=== PATIENT | female | born 1965 | race Caucasian/White ===

== ENCOUNTER 2020-06-02 16:38 | Outpatient (CLI) | payer OTHER, BC, SELFPAY ==
--- NOTE | ~2020-06-02 | MM_ITS ---
EXAMINATION: MM screening [facility] BI w francia HISTORY: Screening mammogram TECHNIQUE: Craniocaudal and mediolateral oblique 3-D tomosynthesis images were obtained and synthetic 2-D images were generated. CAD analysis was submitted and interpreted. COMPARISON: 12/21/2018, 12/19/2017 bilateral digital screening mammogram examinations BREAST PARENCHYMAL COMPOSITION: There are scattered areas of fibroglandular density. FINDINGS: There is no evidence of suspicious mass, calcification, or architectural distortion to sugg est malignancy in either breast. There has been no suspicious interval change. IMPRESSION: 1. No mammographic evidence of malignancy. 2. Recommend routine screening mammography in one year. BI-RADS Category 1: Negative Reviewed, dictated and finalized at location A. 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
== END 2020-06-02 16:39 | disposition home or self-care (01) ==
PROVIDERS: PCP Nurse Practitioner; Visit Provider Nurse Practitioner
DX: Z12.31 Encounter for screening mammogram for malignant neoplasm of breast (principal)
CPT/HCPCS: 77063; 77067

== ENCOUNTER 2021-06-04 13:10 | Outpatient (CLI) | payer OTHER, BC, SELFPAY ==
--- NOTE | ~2021-06-04 | DEXA_ITS ---
Bone Density Report Name: ADENIKE JULES Age: 55 Sex: Female Ethnicity: White Date of : 1965 Indication: monitoring treatment; height loss; hysterectomy; postmenopausal Referring Provider: MANUELMAHNAZ Study: Bone densitometry was performed. Exam Date: June 04, 2021 Accession number: [id number] Bone Density: Region BMD T-score Z-score Classification AP Spine (L1-L4) 1.216 1.5 2.8 Normal Femoral Neck (Left) 0.861 0.1 1.3 Normal Total Hip (Left) 1.011 0.6 1.4 Normal Femoral Neck (Right) 0.828 -0.2 1.0 Normal Total Hip (Right) 0.999 0.5 1.3 Normal Total Hip Mean 1.005 0.6 1.4 Normal World Health Organization criteria for BMD impression classify patients as: Normal (T-score at or above -1.0), Osteopenia (T-score between -1.0 and -2.5), or Osteoporosis (T-score at or below -2.5). 10-year Fracture Risk: FRAX not reported because: All T-scores for Spine Total, Hip Total, Femoral Neck at or above -1.0 Treated for osteoporosis Previous Exams: Region Exam Age BMD T-score BMD Change BMD Change Date g/cm2 vs Baseline vs Previous AP Spine(L1-L4) 06/04/2021 55 1.216 1.5 0.045* 0.045* 09/13/2016 51 1.171 1.1 Total Hip(Left) 06/04/2021 55 1.011 0.6 0.038* 0.038* 09/13/2016 51 0.973 0.3 Total Hip(Right) 06/04/2021 55 0.999 0.5 0.015 0.015 09/13/2016 51 0.985 0.4 *Denotes significance at 95% confidence level, LSC for AP Spine = 0.022 g/cm2, LSC for Total Hip = 0.027 g/cm2 Clinical Information Provided by Patient: Is being treated for osteoporosis Has used the following medications: HRT (i.e. estrogen/hormone therapy), Vitamin D, Calcium Has the following medical conditions: Hysterectomy Patient maximum height was 67 Menopause Age: 50 Does not regularly consume dairy products Drinks caffeinated beverages Onset of menses at age 11 Number of children 2 Impression: The patient has normal bone mass. No significant bone loss was observed. Discussion: PATIENT UNDER TREATMENT WITH NO SIGNIFICANT BMD LOSS SINCE LAST EXAM. In an untreated patient, BMD typically declines with age. A lack of decline or gain is usually a sign that treatment is efficacious and fracture risk is reduced. It is important to ask patients whether they are taking their medications and to encourage continued and appropriate compliance with their osteoporosis therapies to reduce fracture r
--- NOTE | ~2021-06-04 | MM_ITS ---
EXAMINATION: MM screening [facility] BI w francia HISTORY: Screening mammogram TECHNIQUE: Craniocaudal and mediolateral oblique 3-D tomosynthesis images were obtained and synthetic 2-D images were generated. CAD analysis was submitted and interpreted. COMPARISON: 06/02/2020, 12/21/2018, 12/19/2017 bilateral screening mammogram examinations BREAST PARENCHYMAL COMPOSITION: There are scattered areas of fibroglandular density. FINDINGS: There is no evidence of suspicious mass, calcification, or architectural distortion to sugg est malignancy in either breast. There has been no suspicious interval change. IMPRESSION: 1. No mammographic evidence of malignancy. 2. Recommend routine screening mammography in one year. BI-RADS Category 1: Negative Reviewed, dictated and finalized at location A. C MIXER
== END 2021-06-04 13:11 ==
LOC: MICIMG 13:11
PROVIDERS: PCP Family Medicine; Visit Provider Nurse Practitioner
DX: Z12.31 Encounter for screening mammogram for malignant neoplasm of breast (principal); Z78.0 Asymptomatic menopausal state
CPT/HCPCS: 77063; 77067; 77080

== ENCOUNTER 2022-05-23 10:32 | Outpatient (CLI) | payer OTHER, BC, SELFPAY ==
--- NOTE | 2022-05-23 10:15 | ECG_ITS ---
Measurements Intervals [place] Rate: 80 P: 3 IA: 120 QRS: 1 QRSD: 82 T: 43 QT: 362 QTc: 419 Interpretive Statements SINUS RHYTHM BASELINE ARTIFACT- I, II, III, AVR, AVL, AVF, V1-V6 BORDERLINE ECG NO PREVIOUS ECG AVAILABLE FOR COMPARISON Electronically Signed On 05-23-2022 11:35:18 INTENSIVE CARE UNIT REGISTERED NURSE by Wil Weir D.O.
[2022-05-23 11:30] LABS: Anion Gap 8 mmol/L (8-16); Blood Urea Nitrogen 27 mg/dL (7-17); Calcium 8.8 mg/dL (8.4-10.2); Carbon Dioxide 31 mmol/L (22-30); Chloride 97 mmol/L (98-107); Estimated Glomerular Filt Rate > 60; Glucose 129 mg/dL (65-110); Sodium 136 mmol/L (137-145)
== END 2022-05-23 10:33 | disposition home or self-care (01) ==
PROVIDERS: Anesthesiology; PCP Family Medicine; Visit Provider Orthopaedic Surgery
DX: I10 Essential (primary) hypertension (principal); Z79.899 Other long term (current) drug therapy; Z01.818 Encounter for other preprocedural examination; R94.31 Abnormal electrocardiogram [ECG] [EKG]
CPT/HCPCS: 36415; 80048; 93005

== ENCOUNTER 2022-05-25 00:57 | Day surgery (SDC) | payer OTHER, BC, SELFPAY ==
[2022-05-23 09:43] VITALS: BMI 28.2
--- NOTE | 2022-05-23 09:47 | PC.NURSE ---
Report to the Outpatient Waiting Room, entrance under the green pavilion located off [facility], at time 10:00 on date 05/25/22. Planned Procedure Time: 12:00. Time changes happen often and if your time is changed the preop area will call you the afternoon before. - You and your visitor will be asked to self-screen and do not enter if you have any COVID symptoms. - Only one visitor is requested with a max of two and NO children visitors are allowed at this time. - The patient visitor may be requested to leave or wait in car when not with patient due to distancing restrictions. - A mask is optional within the hospital. Patients may have clear liquids (water, carbonated beverages, clear teas, apple juice) until 3 hours prior to surgery with a maximum of 20 ounces. - No food from midnight until time of surgery Take the following medications with a SIP of water the morning of surgery: LEVOTHYROXINE Medications to discontinue per physician: VITAMINS, ASPIRIN Date to take last dose: NO MORE UNTIL AFTER SURGERY Please no make-up, nail english, hairspray, perfume, deodorant, or body powder the day of surgery. No jewelry (including any body piercings) or valuables the day of surgery, leave them at home. Please take a shower or bath the night before, or the morning of, surgery with an antibacterial soap. Wear comfortable, loose fitting clothing. - Jewelry must be removed prior to entering the operating room. Rings and piercings that are not removed may be cut off. - The hospital will not accept responsibility for valuables. - Please leave all valuables, including medications, at home the day of surgery. If you are going home after surgery, a licensed cdl a driver must drive you home. - NO public transportation without another adult if you receive anesthesia. - We recommend that an adult stay with you for 24 hours following discharge. - We also recommend that you do not drive, make important decision, drink alcoholic beverages, or take any drugs that were not prescribed by your health care provider for at least 24 hours after your discharge time. Follow any additional instructions given to you from your surgeon. If you or anyone in your household have experienced Covid symptoms in the past week, please notify your surgeon or the nurse liaison at the phone number below for possible testing. Telephone instructions given to PT - ADENIKE REISING and asked if any additional questions and then verbalized understanding. Patient advised to call surgeon office or pre surgery nurse liaison [phone] if any additional questions.
--- NOTE | 2022-05-23 13:30 | PM.IMHP ---
H&P: HPI History of Present Illness Date/Time: 05/23/22 13:30 Chief Complaint: the patient is a 56-year-old female who sees Dr. Orozco regarding her right knee. The patient has a chronic ongoing history of pain localized to the right knee particularly medially. The patient has trouble twisting or turning squatting kneeling going up and down stairs. Reports mechanical symptoms swelling and aching that limits what she can do during the day. Despite cortisone therapy and anti-inflammatories symptoms continue. Patient cannot stand or walk for long periods continues have aching pain significant nature so therefore an MRI scan was performed. This shows the medial meniscus to be torn with diffuse hyperintense signal within the posterior horn and 4 mm extrusion of the body of the medial meniscus. There is a flap tear which may be coapted there is diffuse hyperintense signal throughout the posterior horn and body of the medial meniscus. Lateral meniscus appears to be intact cartilage in the medial compartment shows moderate degenerative change lateral patellofemoral compartments show thinning as well. The stabilizing ligaments of the knee are intact. There is also very small knee joint effusion no popliteal fossa cyst. At this point the patient has discussed further treatment options in detail with Dr. Orozco she is aware the above findings and knows she may not get full relief is knee pain from knee arthroscopy however she would like to proceed Review of Systems Review of Systems: Ten point review of systems otherwise negative [facility] Social History Social History Smoking status: Never smoker Alcohol intake: current Drinks per week: 5 Substance use: never Substance use type: does not use Spiritual care concerns: No Meds Home Medications and Allergies Home Medications Medication Instructions Recorded Confirmed Type aspirin 81 mg chewable tablet 81 mg PO DAILY 05/23/22 05/23/22 History atorvastatin 20 mg tablet 20 mg PO DAILY 05/23/22 05/23/22 History benzonatate 200 mg capsule 200 mg PO TID PRN COUGH 05/23/22 05/23/22 History calcium carbonate 600 mg calcium 600 mg PO BID 05/23/22 05/23/22 History (1,500 mg) tablet (Calcium) diclofenac sodium 75 mg 75 mg PO BID 05/23/22 05/23/22 History tablet,delayed release estradiol 1 mg tablet 1 mg PO DAILY 05/23/22 05/23/22 History levothyroxine 137 mcg tablet 137 mcg PO DAILY 05/23/22 05/23/22 History losartan 25 mg tablet 25 mg PO DAILY 05/23/22 05/23/22 History montelukast 10 mg tablet 10 mg PO DAILY 05/23/22 05/23/22 History auwrroylsrpg-luemulrj-rjcadn tablet 1 tablet PO DAILY 05/23/22 05/23/22 History pantoprazole 20 mg tablet,delayed 20 mg PO QAM 05/23/22 05/23/22 History release triamterene 37.5 1 tablet PO QAM 05/23/22 05/23/22 History mg-hydrochlorothiazide 25 mg tablet Allergies Allergy/AdvReac Type Severity Reaction Status Date / Time No Known Allergies Allergy Unverified 05/23/22 09:39 Exam Narrative: on exam the patient is noted be a well-developed well-nourished female no acute distress alert oriented x3. Normal mood and affect. The patient is 5 ft 6 in tall 175 lb. hearing and vision are intact. Respiratory is good no distress. Pulse regular rhythm. Abdomen benign. Extremities showed the patient's right knee to be painful with manipulation range of motion she has tenderness on the medial joint line with a positive Lelo exam negative Luci knee joint is otherwise stable strength is 5 5 there is mild crepitation through the arc of motion mild effusion swelling hips move well with negative Stinchfield negative Corey. Neurovascularly patient is intact skin is intact. Central nervous system within normal limits. MRI scan is as above. Assessment and Plan Assessment and plan (1) Tear of medial meniscus of right knee: Code(s): S83.241A - Other tear of medial meniscus, curr
[2022-05-25] VITALS (9 sets, daily range): BP systolic 142–161; BP diastolic 74–100; PULSE 61–74; RESP 12–18; TEMP 36.1–36.4; O2SAT 98–100
--- NOTE | 2022-05-25 06:59 | WPDHPUPDATE1 ---
History and Physical Update Update Date/Time: 05/25/22 06:59 History and Physical has been reviewed, including an updated exam of the patient. There are NO changes in the patient's condition. Risks, benefits, and alternatives have been discussed and questions answered. Patient agrees to proceed with procedure.
[2022-05-25] MEDS: ACETAMINOPHEN 500 MG TABLET 1000 MG PO (08:04)
[2022-05-25] MEDS: LACTATED RINGERS 1,000 ML 30 ML IV CONT ×2 (08:10→09:54)
[2022-05-25] MEDS: KETOROLAC 15 MG/ML VIAL (*BKC) IV PUSH (08:17)
--- NOTE | 2022-05-25 09:02 | P.PNAN_ITS ---
Anes - Initial Pre Proc Eval Procedure: Operation Date: 05/25/22 09:30 Proposed Procedures p Right Knee Arthroscopy, Partial Medial Meniscectomy, Proceed As Indicated - Alexander Orozco MD Date/Time: 05/25/22 09:02 Surgeon: Alexander Orozco MD Pre Op Diagnosis: Medial Meniscus Tear Rt Knee Patient Data Age: 56 Gender: F Height: 1.68 m Weight: 80.3 kg Last Vital Signs Temp 36.4 C L 05/25/22 08:20 Pulse 72 05/25/22 08:20 Resp 16 05/25/22 08:20 BP 142/90 H 05/25/22 08:20 Pulse Ox 100 05/25/22 08:20 O2 Del Method Room Air 05/25/22 08:20 Allergies Allergy/AdvReac Type Severity Reaction Status Date / Time No Known Allergies Allergy Verified 05/25/22 07:35 Home Medications Medication Instructions Recorded Confirmed Type aspirin 81 mg chewable tablet 81 mg PO DAILY 05/23/22 05/23/22 History atorvastatin 20 mg tablet 20 mg PO DAILY 05/23/22 05/23/22 History benzonatate 200 mg capsule 200 mg PO TID PRN COUGH 05/23/22 05/23/22 History calcium carbonate 600 mg calcium 600 mg PO BID 05/23/22 05/23/22 History (1,500 mg) tablet (Calcium) diclofenac sodium 75 mg 75 mg PO BID 05/23/22 05/23/22 History tablet,delayed release estradiol 1 mg tablet 1 mg PO DAILY 05/23/22 05/23/22 History levothyroxine 137 mcg tablet 137 mcg PO DAILY 05/23/22 05/25/22 History losartan 25 mg tablet 25 mg PO DAILY 05/23/22 05/23/22 History montelukast 10 mg tablet 10 mg PO DAILY 05/23/22 05/23/22 History ztbycisxodcn-nfegiqow-puzvzj tablet 1 tablet PO DAILY 05/23/22 05/23/22 History pantoprazole 20 mg tablet,delayed 20 mg PO QAM 05/23/22 05/23/22 History release triamterene 37.5 1 tablet PO QAM 05/23/22 05/23/22 History mg-hydrochlorothiazide 25 mg tablet Patient hx anesthesia problems: none Family hx anesthesia problems: none Results Review: All pre-operative results and documents have been reviewed as part of the pre- operative evaluation. [facility] Past Medical History Medical History Asthma Hyperlipidemia Hypertension Hypothyroid Social History Social History Smoking status: Never smoker Alcohol intake: current Drinks per week: 5 Substance use: never Substance use type: does not use Living arrangements: with family Spiritual care concerns: No Anes - Eval Final PreProcedure Day of Procedure 05/25/22 09:02 Patient weight: overweight Heart: regular rate and rhythm Lungs: clear to auscultation Airway: Mallampati scale class II Neurological: alert and oriented Last oral intake: >/= 8 hours ASA classification: III Emergent: no Anesthetic plan: proceed Anesthesia type and monitoring: general LMA and standard monitoring Results Review: All pre-operative results and documents have been reviewed as part of the pre- operative evaluation. Informed Consent: The patient's anesthetic plan and its attendant risks and benefits were dis cussed with the patient/family/POA. Questions were solicited and answers provided to the satisfaction of the patient/family/POA.
[2022-05-25] MEDS: ceFAZolin 2 GM/D5W 50 ML 2 GM/50 ML BAG IVPB (09:12)
[2022-05-25] MEDS: LIDO 2%/EPINEPHRINE 1:100,000 50 ML VIAL 20 ML INFILTRATE (09:38)
--- NOTE | 2022-05-25 09:49 | W.PM.PROC2 ---
Procedure Note - Detailed Date of Procedure 05/25/22 Pre-op Diagnosis Medial Meniscus Tear Rt Knee Lateral Meniscal Tear Rt Knee Post-op Diagnosis Same Procedure Performed Arthroscopy, partial medial and lateral meniscal tears Surgeon Alexander Orozco MD Anesthesia General Description of Procedure Patient brought up room number 7 a general anesthetic administered placed on the operating table sterilely prepped and draped in usual manner. Superomedial portal used for the outflow cannula inferolateral portal for the scope anteromedial portal for the instruments diagnostic arthroscopy performed patellofemoral joint showed grade 2 changes medial compartment showed complex tearing grade 2-3 changes to medial femoral condyle. Lateral compartment showed a tear in the midbody and interestingly grade 3 and almost grade 4 changes in the medial and the lateral femoral condyle. The menisci were debrided any loose or delaminated fragments chondromalacia gently trimmed at this point the remainder of the cartilage was stable infant drawn 3 sutures placed lidocaine injected patient tolerated procedure well left the operating room satisfactory condition.
[2022-05-25] MEDS: oxyCODONE HCL (*CRX) 5 MG TAB IR PO (11:12)
== END 2022-05-25 11:40 | disposition home or self-care (01) ==
PROVIDERS: PCP Family Medicine; Visit Provider Orthopaedic Surgery
PROC: (CPT 29870; principal; 2022-05-25 09:30)
DX: M23.331 Other meniscus derangements, other medial meniscus, right knee (principal); M23.361 Other meniscus derangements, other lateral meniscus, right knee; I10 Essential (primary) hypertension; E78.5 Hyperlipidemia, unspecified; E03.9 Hypothyroidism, unspecified; J45.909 Unspecified asthma, uncomplicated; Z79.82 Long term (current) use of aspirin
CPT/HCPCS: 29880; 36415; 80048; 93005; A9270; J0690; J1100; J1885; J2250; J2270; J2405; J2704; J7120

== ENCOUNTER → 2022-11-16 13:52 | Outpatient (CLI) | payer OTHER, BC, SELFPAY ==
--- NOTE | ~2022-11-16 | MM_ITS ---
EXAMINATION: MM screening [facility] BI w francia HISTORY: Screening mammogram TECHNIQUE: Craniocaudal and mediolateral oblique 3-D tomosynthesis images were obtained and synthetic 2-D images were generated. CAD analysis was submitted and interpreted. COMPARISON: 06/04/2021, 06/02/2020, 12/21/2018 BREAST PARENCHYMAL COMPOSITION: There are scattered areas of fibroglandular density. FINDINGS: RIGHT BREAST: There is a possible mass in the posterior third of inner breast approximately 10 cm fro m the nipple. LEFT BREAST: No suspicious mass, calcification, or architectural distortion are identified to suggest malignancy. There has been no suspicious interval change. IMPRESSION: 1. Possible right breast mass. 2. Additional mammographic views and possible breast ultrasound are recommended. BI-RADS Category 0: Incomplete: Needs additional imaging evaluation. Reviewed, dictated and finalized at location A. IMPRESSION: 1. Possible right breast mass. 2. Additional mammographic views and possible breast ultrasound are recommended . BI-RADS Category 0: Incomplete: Needs additional imaging evaluation.
== END ==
PROVIDERS: PCP Nurse Practitioner; Visit Provider Nurse Practitioner
DX: Z12.31 Encounter for screening mammogram for malignant neoplasm of breast (principal); R92.8 Other abnormal and inconclusive findings on diagnostic imaging of breast
CPT/HCPCS: 77063; 77067

== ENCOUNTER → 2022-12-12 07:50 | Outpatient (CLI) | payer OTHER, BC, SELFPAY ==
--- NOTE | ~2022-12-12 | MMUS_ITS ---
EXAMINATION: MM diagnostic antonino RT w francia, US breast RT limited HISTORY: TECHNIQUE: Additional 3-D tomosynthesis images of were performed and synthetic 2-D images were genera tremaine. CAD analysis was submitted and interpreted. High resolution breast ultrasound was performed. COMPARISON: None FINDINGS: MAMMOGRAPHIC FINDINGS: Approximately 3 x 6.8 mm circumscribed opacity is noted deep in the posterior upper inner left breast . ULTRASOUND: At 2:00 11 cm from the nipple corresponding to the mammographic finding is an oval parallel circumscr ibed hypoechoic approximately 2.8 x 5.6 x 5.4 mm solid lesion with fatty hilum, consistent with benig n appearing intramammary lymph node. IMPRESSION: 1. Benign appearing posterior upper inner quadrant intramammary lymph node 2. Routine mammographic screening is recommended BI-RADS Category 2: Benign finding(s). Reviewed, dictated and finalized at location A. IMPRESSION: 1. Benign appearing posterior upper inner quadrant intramammary lymph node 2. Routine mammographic screening is recommended BI-RADS Category 2: Benign finding(s).
== END ==
PROVIDERS: PCP Obstetrics & Gynecology Gynecology; Visit Provider Obstetrics & Gynecology Gynecology
DX: R92.8 Other abnormal and inconclusive findings on diagnostic imaging of breast (principal)
CPT/HCPCS: 76642; 77061; 77065; G0279

== ENCOUNTER 2024-01-15 12:45 | Outpatient (CLI) | payer OTHER, SELFPAY ==
--- NOTE | ~2024-01-15 | MM_ITS ---
EXAMINATION: MM screening [facility] BI w francia HISTORY: Screening TECHNIQUE: Craniocaudal and mediolateral oblique 3-D tomosynthesis images were obtained and synthetic 2-D images were generated. CAD analysis was submitted and interpreted. COMPARISON: Comparison to multiple prior studies sequentially, with oldest reviewed study dated 12/19. BREAST PARENCHYMAL COMPOSITION: Not dense: There are scattered areas of fibroglandular density. FINDINGS: There is no evidence of suspicious mass, calcification, or architectural distortion to sugg est malignancy in either breast. There has been no suspicious interval change. IMPRESSION: 1. No mammographic evidence of malignancy. 2. Recommend routine screening mammography in one year. BI-RADS Category 1: Negative Reviewed, dictated and finalized at location B.
== END 2024-01-15 12:46 ==
PROVIDERS: PCP Nurse Practitioner; Visit Provider Nurse Practitioner
DX: Z12.31 Encounter for screening mammogram for malignant neoplasm of breast (principal); Z78.0 Asymptomatic menopausal state
CPT/HCPCS: 77063; 77067

== ENCOUNTER 2024-01-18 07:14 | Outpatient (CLI) | payer OTHER, SELFPAY ==
--- NOTE | ~2024-01-18 | DEXA_ITS ---
Bone Density Report Name: ADENIKE JULES Age: 58 Sex: Female Ethnicity: White Date of : 1965 Indication: postmenopausal; screening for osteoporosis; end stage renal disease; hysterectomy; Referring Provider: Angela, Zuleika Study: Bone densitometry was performed. Exam Date: January 18, 2024 Accession number: [id number] Bone Density: Region BMD T-score Z-score Classification AP Spine(L1, L2, L3) 1.111 0.8 2.3 Normal Femoral Neck (Left) 0.838 -0.1 1.2 Normal Total Hip (Left) 1.020 0.6 1.6 Normal Femoral Neck (Right) 0.824 -0.2 1.1 Normal Total Hip (Right) 1.001 0.5 1.5 Normal Femoral Neck Mean 0.831 -0.2 1.1 Normal Total Hip Mean 1.010 0.6 1.5 Normal World Health Organization criteria for BMD impression classify patients as: Normal (T-score at or above -1.0), Osteopenia (T-score between -1.0 and -2.5), or Osteoporosis (T-score at or below -2.5). 10-year Fracture Risk: FRAX not reported because: All T-scores for Spine Total, Hip Total, Femoral Neck at or above -1.0 Clinical Information Provided by Patient: Has 3 or more alcoholic drinks per day Has used the following medications: HRT (i.e. estrogen/hormone therapy), Vitamin D, Calcium, multi Has the following medical conditions: End stage renal disease, Hysterectomy Patient maximum height was 66 Menopause Age: 48 No regular weight bearing exercise Drinks caffeinated beverages Onset of menses at age 11 Number of children 2 Impression: The patient has normal bone mass. The patient has risk factors, including: excessive alcohol use. Discussion: BONE DENSITY IS ABOVE THE MINIMUM DESIRABLE LEVEL AT ALL SKELETAL SITES TESTED. This patient?s bone mineral density is above the minimum desirable level (T-score -1.0 or better) at all sites measured. The patient should follow a healthful lifestyle (good nutrition with adequate calcium and vitamin D, and appropriate weight-bearing exercise). Follow-Up: Consider repeating this study in 5 years or sooner if there is some new clinical indication. Reported by: Dr. Micheal Morejon on 01/18/2024 7:39:00 AM. Reviewed, dictated and finalized at location A.
== END 2024-01-18 07:15 | disposition home or self-care (01) ==
LOC: CHSIMG 07:18
PROVIDERS: PCP Family Medicine; Visit Provider Nurse Practitioner
DX: Z78.0 Asymptomatic menopausal state (principal)
CPT/HCPCS: 77080

== ENCOUNTER 2025-01-16 15:26 | Outpatient (CLI) | payer OTHER, SELFPAY ==
--- NOTE | ~2025-01-16 | MM_ITS ---
EXAMINATION: MM screening [facility] BI w francia HISTORY: Screening TECHNIQUE: Craniocaudal and mediolateral oblique 3-D tomosynthesis images were obtained and synthetic 2-D images were generated. CAD analysis was submitted and interpreted. COMPARISON: Comparison to multiple prior studies sequentially, with oldest reviewed study dated 12/21. BREAST PARENCHYMAL COMPOSITION: Not dense: There are scattered areas of fibroglandular density. FINDINGS: Stable benign-appearing mass upper inner quadrant of the right breast consistent with lymph node described on prior ultrasound dated 12/12/2022. There is no evidence of suspicious mass, calcifi cation, or architectural distortion to suggest malignancy in either breast. There has been no suspici ous interval change. IMPRESSION: 1. No mammographic evidence of malignancy. 2. Recommend routine screening mammography in one year. BI-RADS Category 2: Benign finding(s). Reviewed, dictated and finalized at location B.
== END 2025-01-16 15:27 | disposition home or self-care (01) ==
LOC: MICIMG 15:28
PROVIDERS: PCP Family Medicine; Visit Provider Nurse Practitioner
DX: Z12.31 Encounter for screening mammogram for malignant neoplasm of breast (principal)
CPT/HCPCS: 77063; 77067